=== PATIENT | male | born 1955 | race Caucasian/White ===

== ENCOUNTER 2016-12-20 05:52 | Inpatient (IN) | payer OTHER ==
[~2016-12-20] VITALS: Ht 182.9 cm; Wt 79.0 kg
--- NOTE | ~2016-12-20 | OR ---
ADMIT: 12/20/2016 RM/LOC: 619 [facility] MR#: [id number] 2620 [facility] [address] [place] [id number] SARAH BUI [address] [place] [address] Operative/Delivery Room Report SEX: M AGE: 61 : 1955 SURGERY DATE: 12/20/2016 SURGEON: Miles Salas MD BILINGUAL LEGAL ASSISTANT: Ryan Tirado MD. PRE-PROCEDURE DIAGNOSES: 1. Anemia. 2. Possible mid small bowel ulcer. 3. Anastomotic bleed. POSTPROCEDURE DIAGNOSES: 1. Anemia. 2. Possible mid small bowel ulcer. 3. Anastomotic bleed. PROCEDURE: Exploratory laparoscopy converted to mini laparotomy with segmental small bowel resection. INDICATIONS: Patient is a 61-year-old who years ago presented with partial small bowel obstructive symptoms and was found to have some mild concentric rings diffusely through his small bowel. We had done a segmental small bowel resection at that time. He recovered nicely, but over last couple years had recurrent issues with anemia, had multiple scopes and PillCam, which showed some mid small bowel ulcerogenic changes, likely the cause of his anemia who presents for exploratory laparoscopy, possible laparotomy, and segmental small bowel resection. FINDINGS: The patient was taken to the operating room where general endotracheal anesthesia was induced. The patient's abdomen was prepped and draped in normal sterile fashion. The case was begun by making an infraumbilical vertical 5 mm skin incision using #11 blade. A retractable 5-mm port was placed within the abdomen. The abdomen was inflated with CO2 to an intra-abdominal pressure of 15 mmHg. A camera was placed showing no bowel or vascular injury. Left upper abdominal and left lower abdominal 5 mm ports were placed under direct vision. The case was begun by identifying the cecum. We ran the small bowel all way from the ileum to the ligament of Treitz. We were able to identify previously marked silk sutures I had placed, kind of marked the extent of what appeared to be abnormal disease years ago. Just distal to our mid small bowel anastomosis, there were just a couple areas that appeared mildly concentric and mildly scarred with maybe a hint of some creeping fat, but not a classic Crohn's look. Then we identified the anastomosis and then proximal to this anastomosis, all small bowel appeared to be without any type of pathology. I ran it all the way to the ligament Treitz and then re-ran the bowel again all the way from ligament of Treitz back to the ileum identifying the previous anastomosis as well as these 2 or 3 areas just distal to the anastomosis that appeared to be somewhat mildly fibrotic. We elected to resect an old anastomosis and about 20 cm of distal small bowel. We made a mini laparotomy through about a 6-cm midline supraumbilical incision with a #10 ADMIT: 12/20/2016 RM/LOC: 619 [facility] MR#: [id number] [facility] [address] [id number] [place] [address] Operative/Delivery Room Report SEX: M AGE: 61 : 1955 blade. Dissection was carried down through the subcutaneous fat, fascia, and perineum using electrocautery. Placed a wound protector within the abdomen, brought the specimen out through the anterior abdominal wall and again confirming our laparoscopic findings, we found a similar amount of kind of induration at the small segmental areas. I am wondering if he does not have potentially some subclinical Crohn disease possibly. Also of note within his small bowel anastomosis even though it appeared widely patent with our fingers, PillCam that he had previously had, I believe he had one in an outside institution as well was still sitting at this small bowel anastomosis. Therefore, we divided the bowel just proximal to the anastomosis with a 75 ANDERSON stapler and then distal to these segmental mildly fibrotic areas, distal to the anastomosis, I included that in the specimen and divided the bowel about 20 cm distal to the anastomosis with another 75 ANDERSON stapler. We took down the mesentery between clamps and 0 Vicryl ties. During the course of this, one of the vessels retracted back into the mesentery and we had to suture ligate the vessel with 2 interrupted [id number] 0 Vicryl sutures. It stopped the bleeding and there was no evidence of an expanding mesenteric hematoma. We observed this for about 5-10 minutes before we proceeded and we also re- observed this after we had re-done our anastomosis. After being satisfied there was no bleeding and we removed all gross pathology, I grasped the antimesenteric staple line borders of each transection site, opened it with Mays scissors and created a [id number] stapled small bowel anastomosis with a 75 ANDERSON stapler and closed the common enterotomy with a 75 ANDERSON stapler. I reinforced the apex of our staple line with 3 interrupted seromuscular 3-0 silk pop-off sutures. I ran the common enterotomy staple line closure with a running 3-0 silk suture. I then closed down the mesenteric defect with a running 3-0 Vicryl suture and again at the completion of this mesenteric closure, there was again no evidence of mesenteric bleeding or hematoma. I placed the bowel loops back in the intra-abdominal space. We lost about 150- 200 mL of blood. I removed the wound protector and again observed the intra- abdominal space to make sure there was no bleeding and there was none. I then closed the wound with running single stranded #1 PDS suture and closed the skin sites with interrupted skin rodrigo. Wounds were cleaned and dried and dressed. Patient tolerated the procedure without difficulty, transferred to recovery room in good condition. EDIT: 12/23/2016 0645 njv Miles Salas MD/ jasmina JOB #: [id number] CC: Miles Salas, Attending Physician NO FAMILY PHYSICIAN, Family Physician
[2016-12-23] MEDS ORDERED: NORCO 5-325 TA1 EACH PO (13:38)
--- NOTE | 2017-01-20 08:52 | DS ---
ADMIT: 12/20/2016 RM/LOC: 619 [facility] MR#: [id number] 2620 [facility] [address] [place] [id number] SARAH BUI [address] [place] [address] Discharge Summary SEX: M AGE: 61 : 1955 ADMISSION DATE: 12/20/2016 DISCHARGE DATE: 12/22/2016 ADMITTING DIAGNOSIS: Anemia. DISMISSAL DIAGNOSES: 1. Active chronic enteritis with chronic ulcers and submucosal neural hyperplasia consistent with Crohn's disease of the small bowel. 2. Anemia. PROCEDURES: Exploratory laparoscopy converted to mini laparotomy with segmental small bowel resection. HOSPITAL COURSE: The patient was an inpatient admit with routine med surg orders. He was started on clears and given a morphine PACKAGE HANDLER for pain control. Overall, the patient recovered well while in the hospital. His pain was controlled so he was transitioned off the morphine PACKAGE HANDLER and was tolerating oral pain medications. He was tolerating an advanced diet and had normal return of his bowel function. Vitals remained stable throughout his hospital course, and he was deemed appropriate to dismissal on 12/22/2016. INSTRUCTIONS: 1. Resume regular diet. 2. Follow up with Dr. Salas on 12/30 in [place]. 3. Leave dressings in place. DISMISSAL MEDICATION LIST: Calvert 1-2 tabs q.4-6 hours p.r.n. MONA Bucio / Miles Salas MD / cristopher JOB #: [id number] CC: Miles Salas MD, Attending Physician FAMILY PHYSICIAN, Family Physician
== END 2016-12-22 10:35 | disposition home or self-care (01) | DRG 330 ==
LOC: WOR 05:52 → 6PED 09:54
PROVIDERS: ADMIT Surgery
PROC: 0DB80ZZ Excision of Small Intestine, Open Approach (ICD-10-PCS; principal; 2016-12-20)
PROC: 0WJG4ZZ Inspection of Peritoneal Cavity, Percutaneous Endoscopic Approach (ICD-10-PCS; principal; 2016-12-20)
DX: K50.00 Crohn's disease of small intestine without complications (principal); K91.89 Other postprocedural complications and disorders of digestive system; D64.9 Anemia, unspecified